=== PATIENT | female | born 1970 | race Caucasian/White ===

== ENCOUNTER → 2017-06-15 | Outpatient (CLI) | payer OTHER | LOC: FIMAGING 08:29 | PROVIDERS: ATTEND Internal Medicine | DX: Z12.31 Encounter for screening mammogram for malignant neoplasm of breast (principal) | CPT/HCPCS: G0202 ==

== ENCOUNTER 2018-09-22 16:00 | Emergency (ER) | payer OTHER ==
--- NOTE | 2018-09-22 16:21 | EDPHY ---
H & P Stated Complaint: tripped fell on [place] nose injury, epistaxis controlled Time Seen by Provider: 09/22/18 16:18 HPI/ROS: HPI CHIEF COMPLAINT: Epistaxis status post trip and fall,facial strike. 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 She sustained bilateral epistaxis. Nasal bridge swelling. Denies headache or neck pain, denies chest pain or shortness of breath, denies any other area of injury except for nasal bridge. Packed her nose prior to arrival. Good hemostasis. Past Medical History: No significant medical history Past Surgical History: No significant surgical history Social History: Denies drugs alcohol tobacco. Works as an RN [employer] Family History: Noncontributory ROS REVIEW OF SYSTEMS: 10 Systems were reviewed and negative with the exception of the elements mentioned in the history of present illness. Exam Constitutional appears well nontoxic triage nursing summary reviewed, vital signs reviewed, awake/alert. Eyes normal conjunctivae and sclera, EOMI, PERRLA. HENT nasal bridge swelling on exam, midface stable, no crepitus, no emphysema, no septal hematoma on exam, anterior nose bleed bilaterally with good hemostasis packing applied by the patient prior to arrival, normal inspection, atraumatic, moist mucus membranes, no epistaxis, neck supple/ no meningismus, no raccoon eyes. Respiratory clear to auscultation bilaterally, normal breath sounds, no respiratory distress, no wheezing. Cardiovascular rate normal, regular rhythm, no murmur, no edema, distal pulses normal. Gastrointestinal soft, non-tender, no rebound, no guarding, normal bowel sounds, no distension, no pulsatile mass. Genitourinary no CVA tenderness. Musculoskeletal no midline vertebral tenderness, full range of motion, no calf swelling, no tenderness of extremities, no meningismus, good pulses, neurovascularly intact. Skin pink, warm, & dry, no rash, skin atraumatic. Neurologic awake, alert and oriented x 3, AAOx3, moves all 4 extremities equally, motor intact, sensory intact, CN II-XII intact, normal cerebellar, normal vision, normal speech. Psychiatric normal mood/affect. Heme/Lymph/Immune no lymphadenopathy. Differential Diagnosis: Includes but is not limited to in a particular order nasal bone fracture, nasal contusion, epistaxis from trauma, septal hematoma Medical Decision Making: Plan for this patient she arrives to the emergency room with good hemostasis. Plan will be for x-ray nasal bridge for fracture. Re-evaluation: X-ray of the nasal bone reviewed shows a tip fracture. Discussed x-ray results with the patient. Recommend ice. Re-evaluation 1719 no further epistaxis. Resting comfortably. No acute distress. Source: Patient - Personal History LMP (Females 10-55): Unknown Tetanus Vaccine Date: 06/2006 - Medical/Surgical History Hx Asthma: Yes Hx Chronic Respiratory Disease: No Hx Diabetes: No Hx Cardiac Disease: No Hx Renal Disease: No Hx Cirrhosis: No Hx Alcoholism: No Hx HIV/AIDS: No Hx Splenectomy or Spleen Trauma: No Other PMH: asthma - Social History Smoking Status: Never smoked Constitutional: Initial Vital Signs Temperature (C) 36 C 09/22/18 16:06 Heart Rate 78 09/22/18 16:06 Respiratory Rate 16 09/22/18 16:06 Blood Pressure 147/93 H 09/22/18 16:06 O2 Sat (%) 97 09/22/18 16:06 O2 Delivery Mode Room Air Allergies/Adverse Reactions: ENVRONMENTAL Allergy (Mild, Uncoded 09/22/18 16:04) STUFFY NOSE Home Medications: Medication Instructions Recorded Prednisone 09/22/18 Singulair 09/22/18 Medical Decision Making - Diagnostics Imaging Results: Imaging Impressions Nasal Bones X-Ray 09/22/18 16:17 Impression: 1. Nondisplaced fracture anterior tip nasal bone with adjacent soft tissue swelling. Departure - Departure Disposition: Home, Routine, Self-Care Clinical Impression: Epistaxis, Nasal fracture Condition: Good Instructions: Nasal Fracture (ED), Nosebleed (ED) Additional Instructions: 1. Recommend ice. 2. Return emergency room if there is worsening symptoms including pain, bleeding 3. Follow up with ENT. Referrals: Shelbie Rachel MD [Primary Care Provider] - As per Instructions Walter Jack MD [Medical Doctor] - As per Instructions
[2018-09-22 17:28] VITALS: BP 160/103
== END 2018-09-22 17:28 | disposition home or self-care (01) ==
DX: S02.2XXA Fracture of nasal bones, initial encounter for closed fracture (principal); R04.0 Epistaxis; W00.0XXA Fall on same level due to ice and snow, initial encounter; Y92.89 Other specified places as the place of occurrence of the external cause; Y93.9 Activity, unspecified; Y99.9 Unspecified external cause status